=== PATIENT | male | born 1960 | race African-American/Black ===

== ENCOUNTER 2020-11-14 09:36 | Emergency (ER) | payer MEDICARE ==
[~2020-11-14] VITALS: Ht 193 cm; Wt 170.0 kg
[2020-11-14 10:33] LABS: BASOPHILS % (AUTO) 1 % (0-1); EOSINOPHILS % (AUTO) 2 % (1-7); LYMPHOCYTES % (AUTO) 24 % (22-44); MEAN CORPUSCULAR HEMOGLOBIN 31.8 pg (27.5-34.5); MEAN CORPUSCULAR HGB CONC 32.5 g/dL (33.2-36.2); MEAN PLATELET VOLUME 8.2 fL (7.4-10.4); MONOCYTES % (AUTO) 8 % (2-9); NEUTROPHILS % (AUTO) 66 % (42-75); PLATELET COUNT 241 x10^3/uL (130-400); RED BLOOD COUNT 4.72 x10^6/uL (4.38-5.82); RED CELL DISTRIBUTION WIDTH 15.8 % (9.4-14.8)
--- NOTE | 2020-11-14 10:41 | NUR ---
AV FISTULA PRESENT IN RIGHT UPPER ARM. (+) THRILL/BRUIT
[2020-11-14 10:42] LABS: ALBUMIN 3.1 g/dL (3.4-5.0); ANION GAP 12 mmol/L (5-15); CHLORIDE 101 mmol/L (98-107)
--- NOTE | 2020-11-14 12:30 | NUR ---
mealirish provided and appreciated. pt sitting in his own wheelchair at the bedside.
--- NOTE | 2020-11-14 13:51 | NUR ---
pt to restroom in [facility].
[2020-11-14 13:52] VITALS: BP 114/81
--- NOTE | 2020-11-14 14:40 | NUR ---
TECHNICAL LEAD IS SETTING UP FOR BEDSIDE HEMODIALYSIS. PT IS AGREEABLE TO PLAN OF CARE.
--- NOTE | 2020-11-14 14:52 | NUR ---
DALE (RN) IS ASSUMING CARE OF THIS PT AT THIS TIME. SBAR WAS EXCHANGED AT THE BEDSIDE.
--- NOTE | 2020-11-14 14:56 | NUR ---
Report received from DEMARIO Orellana. This RN to assume care. Dialysis at bedside.
[2020-11-14] MEDS ORDERED: ACETAMINOPHEN 500 MG TABLET ONE (18:01)
[2020-11-14] MEDS ORDERED: ACETAMINOPHEN 500 MG TABLET PO ONE (18:30)
--- NOTE | 2020-11-14 18:41 | NUR ---
Patient dialysis complete. Discharge nurse arrived to discharge patient. No questions from patient. Belongings with patient.
== END 2020-11-14 18:43 | disposition home or self-care (01) ==
LOC: SUATTDRO 12:22 → ED 12:57 → INTOOBSV 13:39 → UNDOADMOB 13:39 → EDIP 13:39
PROVIDERS: ATTEND Internal Medicine
DX: J96.01 Acute respiratory failure with hypoxia (principal); N18.9 Chronic kidney disease, unspecified; R10.9 Unspecified abdominal pain; R94.31 Abnormal electrocardiogram [ECG] [EKG]
CPT/HCPCS: 36415; 71045; 80048; 82040; 85025; 93005; 99285; G0257